=== PATIENT | male | born 1990 | race Caucasian/White ===

== ENCOUNTER 2024-03-25 08:35 | Emergency (ER) | payer SELFPAY ==
[2024-03-25] VITALS (21 sets, daily range): BP systolic 95–155; BP diastolic 71–95; PULSE 61–88; TEMP 36.6; O2SAT 95–99; BMI 34.5
--- NOTE | 2024-03-25 08:51 | ED.GENADUL1 ---
HPI HPI - General Adult General Chief complaint: Shortness of Breath/Dyspnea Stated complaint: sob Time Seen by Provider: 03/25/24 08:36 Source: patient Mode of arrival: walk-in Limitations: no limitations Related Data Home Medications ?Medication ?Instructions ?Recorded ?Confirmed No Known Home Medications 03/25/24 03/25/24 Allergies Allergy/AdvReac Type Severity Reaction Status Date / Time No Known Drug Allergies Allergy Verified 03/25/24 08:41 Opioid HPI Opioid Management Most Recent Opioid Data: No Data to Display Review of Systems ROS Status of ROS 10 or more systems reviewed and unremarkable except as noted in history and below PFSH PFSH Social History Little interest or pleasure in doing things: not at all Feeling down, depressed, or hopeless: not at all Exam Constitutional Vital Signs, click to edit/add: Last Vital Signs Temp 97.8 F 03/25/24 08:41 Pulse 66 03/25/24 11:01 Resp 17 03/25/24 11:01 BP 95/73 03/25/24 11:01 Pulse Ox 97 03/25/24 11:01 Course Vital Signs Vital signs: Vital Signs Temperature 97.8 F 03/25/24 08:41 Pulse Rate 87 03/25/24 08:41 Respiratory Rate 18 03/25/24 08:41 Blood Pressure 155/95 H 03/25/24 08:41 Pulse Oximetry 98 03/25/24 08:41 Temperature 97.8 F 03/25/24 08:41 Pulse Rate 66 03/25/24 11:01 Respiratory Rate 17 03/25/24 11:01 Blood Pressure 95/73 03/25/24 11:01 Pulse Oximetry 97 03/25/24 11:01 Medical Decision Making [facility] Narrative Medical decision making narrative: Patient's labs are nonacute. D-dimer negative, troponin negative. Patient has a normal chest x-ray. No evidence of cardiac or respiratory abnormality. Patient does have a history of anxiety which could be accounting for some of the symptoms. Please establish a family doctor for follow-up. Return to ED if worsening symptoms. Patient is comfortable care plan for home. Differential Diagnosis Differential Diagnosis: PE, cardiac abnormality, anxiety, COVID Medical Records Medical records reviewed: Yes I reviewed the patient's medical records Lab Data Lab results reviewed: Yes I reviewed the patient's lab results Labs: Lab Results 03/25/24 03/25/24 Range/Units 09:01 09:04 WBC 7.7 (4.0-11.0) 10^3/uL RBC 4.79 (4.70-6.10) 10^6/uL Hgb 14.4 (14.0-18.0) g/dL Hct 43.5 (42.0-54.0) % MCV 90.8 (80.0-94.0) fL MCH 30.1 (25.9-34.0) pg MCHC 33.1 (29.9-35.2) g/dL RDW 12.8 (11.0-15.0) % Plt Count 270 (150-450) 10^3/uL MPV 8.4 L (9.5-13.5) fL Neut % (Auto) 47.3 (43.0-75.0) % Lymph % (Auto) 37.5 (20.5-60.0) % [place] % (Auto) 11.1 (1.7-12.0) % Eos % (Auto) 3.0 (0.9-7.0) % Baso % (Auto) 0.7 (0.2-2.0) % Neut # (Auto) 3.7 (1.4-6.5) 10^3/uL Lymph # (Auto) 2.9 (1.2-3.8) 10^3/uL [place] # (Auto) 0.9 H (0.3-0.8) 10^3/uL Eos # (Auto) 0.2 (0.0-0.7) 10^3/uL Baso # (Auto) 0.1 (0.0-0.1) 10^3/uL Abs Immat Gran (auto) 0.03 (0.00-0.03) 10^3/uL Imm/Tot Granulo (auto) 0.4 (0.0-0.5) % D-Dimer 0.19 (<=0.59) mg/L FEU Sodium 140 (136-145) mmol/L Potassium 4.3 (3.5-5.1) mmol/L Chloride 103 (98-107) mmol/L Carbon Dioxide 28.5 (21.0-32.0) mmol/L Anion Gap 12.8 BUN 12.0 (7.0-18.0) mg/dL Creatinine 1.14 (0.70-1.30) mg/dL Est GFR ( Amer) >60 (>=60 mL/min/1.73m^2) Est GFR (Non-Af Amer) >60 (>=60 mL/min/1.73m^2) BUN/Creatinine Ratio 10.5 Glucose 104 (74-106) mg/dL Calcium 9.6 (8.5-10.1) mg/dL Total Bilirubin 0.9 (0.2-1.0) mg/dL AST 28 (15-37) U/L ALT 71 H (16-63) U/L Alkaline Phosphatase 78 (46-116) U/L Troponin I High Sens <4.0 L (4.0-76.1) pg/mL Total Protein 6.9 (6.4-8.2) g/dL Albumin 3.6 (3.4-5.0) g/dL Globulin 3.3 g/dL Albumin/Globulin Ratio 1.1 SARS-CoV-2 Ag (CV2AG) Negative (NEGATIVE) Imaging Data Chest x-ray: Radiologist's impression: ITS Impressions Chest X-Ray 03/25/24 08:57 IMPRESSION: 1. No acute cardiopulmonary process. Clear lungs. Electronically authenticated by: GLORIA YUSUF Date: 03/25/2024 09:52 ECG Data Attestation: I personally reviewed and interpreted this ECG as follows: Interpretation: EKG INTERPRETATION Time: []846 Rate: []73 Rhythm: _ []Sinus rhythm ST segments: _ []No acute ST elevation or depression T waves: _ []Inverted T waves 1 2 aVL and 3 Ectopy: _ [] P wave/CA interval: _ [] QRS interval: _ [] QT interval: _ [] Comparison: _ [] Comparison EKG date: [] Performed by: [self] Discharge Plan Discharge Chief Complaint: Shortness of Breath/Dyspnea Clinical Impression: Dyspnea Patient Disposition: Home, Self-Care Time of Disposition Decision: 10:41 Condition: Good Mode of Transportation: Private Vehicle Prescriptions / Home Meds: No Action No Known Home Medications Print Language: Zambian Instructions: Dyspnea (ED) Referrals: Physician,Non-Staff, [Primary Care Provider] - 1 week Shaikh Cartwright MD [Physician] - 1 week Discharge Date/Time: 03/25/24 11:07
--- NOTE | 2024-03-25 08:57 | ECG_ITS ---
[facility] Test Date: 2024-03-25 Pat Name: Ronnie Claire Department: Room: - Gender: Male Supervisor [employer]: : 1990 Requested By: Order Number: [id number] Reading MD: KAMERON OGLESBY Measurements Intervals [place] Rate: 73 P: 139 ND: 142 QRS: 153 QRSD: 76 T: 171 QT: 390 QTc: 416 Interpretive Statements 1220 Rapid atrial rhythm 3534 Lateral myocardial infarction, age undetermined [address] depression 5120 Possible right ventricular hypertrophy 0101 Possible arm leads reversed, check lead requested 9150 abnormal ECG No previous ECG available for comparison Electronically Signed On 03-25-2024 22:44:45 EDT by KAMERON OGLESBY
--- NOTE | 2024-03-25 08:57 | XR_ITS ---
The [address] [address] Patient Name: SELMA JARRETT MRN: [id number] date: 1990 Sex: M Assigned Patient Location: ER Current Patient Location: ER Accession/Order Number: [id number] Exam Date: 03/25/2024 09:16 Report Date: 03/25/2024 09:52 At the request of: MARY CARRANZA Procedure: XR chest 2V EXAMINATION: XR chest 2V HISTORY: sob COMPARISON: No relevant comparison available. FINDINGS: LUNGS: No significant pulmonary parenchymal abnormalities. VASCULATURE: No increased pulmonary vasculature. PLEURA: No pneumothorax, effusion, or pleural thickening. CARDIAC: No cardiomegaly or cardiac silhouette abnormality. MEDIASTINUM: No visible mass or adenopathy. BONES: No fracture or visible bone lesion. OTHER: Negative. XR/XR chest 2V IMPRESSION: 1. No acute cardiopulmonary process. Clear lungs. Electronically authenticated by: GLORIA YUSUF Date: 03/25/2024 09:52
[2024-03-25 09:08] LABS: Basophils Absolute Auto 0.1 10^3/uL (0.0-0.1); Basophils Percent Auto 0.7 % (0.2-2.0); Eosinophils Absolute Auto 0.2 10^3/uL (0.0-0.7); Hematocrit 43.5 % (42.0-54.0); Hemoglobin 14.4 g/dL (14.0-18.0); Immature Granulocytes Abs Auto 0.03 10^3/uL (0.00-0.03); Immature Granulocytes Pct Auto 0.4 % (0.0-0.5); Lymphocytes Absolute Auto 2.9 10^3/uL (1.2-3.8); Lymphocytes Percent Auto 37.5 % (20.5-60.0); Mean Corpuscular HGB Conc 33.1 g/dL (29.9-35.2); Mean Corpuscular Hemoglobin 30.1 pg (25.9-34.0); Mean Corpuscular Volume 90.8 fL (80.0-94.0); Mean Platelet Volume 8.4 fL (9.5-13.5); Monocytes Absolute Auto 0.9 10^3/uL (0.3-0.8); Monocytes Percent Auto 11.1 % (1.7-12.0); Neutrophils Absolute Auto 3.7 10^3/uL (1.4-6.5); Neutrophils Percent Auto 47.3 % (43.0-75.0); Platelet Count 270 10^3/uL (150-450); Red Blood Count 4.79 10^6/uL (4.70-6.10); Red Cell Distribution Width 12.8 % (11.0-15.0); White Blood Count 7.7 10^3/uL (4.0-11.0)
[2024-03-25 09:21] LABS: SARS-CoV-2 Ag NEGATIVE (NEGATIVE)
[2024-03-25 09:22] LABS: Internal Control Within Normal Limits
[2024-03-25 09:27] LABS: D Dimer 0.19 mg/L FEU (<=0.59)
[2024-03-25 10:24] LABS: Alanine Aminotransferase 71 U/L (16-63); Albumin Globulin Ratio 1.1; Albumin Level 3.6 g/dL (3.4-5.0); Alkaline Phosphatase 78 U/L (46-116); Anion Gap 12.8; Aspartate Amino Transferase 28 U/L (15-37); BUN Creatinine Ratio 10.5; Bilirubin Total 0.9 mg/dL (0.2-1.0); Calcium 9.6 mg/dL (8.5-10.1); Carbon Dioxide 28.5 mmol/L (21.0-32.0); Chloride 103 mmol/L (98-107); Estimated GFR (African America >60 (>=60 mL/min/1.73m^2); Estimated GFR (Non-African Ame >60 (>=60 mL/min/1.73m^2); Globulin 3.3 g/dL; Glucose 104 mg/dL (74-106); Potassium 4.3 mmol/L (3.5-5.1); Sodium 140 mmol/L (136-145); Total Protein 6.9 g/dL (6.4-8.2)
[2024-03-25 10:26] LABS: Troponin I High Sensitivity <4.0 pg/mL (4.0-76.1)
== END 2024-03-25 11:07 | disposition home or self-care (01) ==
PROVIDERS: Emergency Provider Emergency Medicine
DX: R06.00 Dyspnea, unspecified (principal); Z20.822 Contact with and (suspected) exposure to COVID-19
CPT/HCPCS: 36415; 71046; 80053; 84484; 85025; 85378; 87811; 93005; 99285